=== PATIENT | male | born 1945 | race Caucasian/White ===

== ENCOUNTER 2018-02-23 20:25 | Inpatient (IN) | payer MEDICARE, OTHER ==
[~2018-02-23] VITALS: Ht 182.9 cm; Wt 89.0 kg
[2018-02-23 20:00] VITALS: BP 164/74; PULSE 70; RESP 18; TEMP 97.7; O2SAT 92
[~2018-02-23 20:25] MED LIST: ACETAMINOPHEN 325 MG TAB PO PRN; ASPI-516 CHEW; ATOR10TA15 PO; BISACODYL 10 MG SUPP RECTAL PRN; LACTULOSE SYRUP 20 GM/30 ML CUP PO PRN; MAGNESIUM HYDROXIDE SUSP 30 ML CUP PO PRN; NALOXONE HCL 0.4 MG/ML AMP IV PUSH PRN; ONDANSETRON ODT 4 MG TAB PO PRN; PROS5TAB PO; SENNOSIDES 8.6 MG TAB PO PRN; SODIUM CHLORIDE 0.9% FLUSH 10 ML FLUSH IV FLUSH PRN
[2018-02-23 21:00] VITALS: BP 164/74; PULSE 70; RESP 18; TEMP 97.7; O2SAT 92
[2018-02-23] MEDS: ATORVASTATIN 10 MG TAB PO SCH (21:30)
[2018-02-23] MEDS: MORPHINE SULFATE 4 MG/ML INJ IV PUSH PRN (21:31)
[2018-02-23] MEDS: SODIUM CHLORIDE 0.9% FLUSH 10 ML FLUSH IV FLUSH SCH (21:48)
[2018-02-23 22:18] VITALS: BP 158/67; PULSE 75; RESP 18; TEMP 98; O2SAT 95
--- NOTE | 2018-02-23 22:37 | HHI.HP ---
[facility] Frank Madden MD Admission Diagnosis Left calcaneus fracture . Diagnoses: (1) Left calcaneal fracture Chief Complaint: Left ankle pain following fall at home Travel History International Travel<30 Days: No Contact w/Intl Traveler <30 Da: No History of Present Illness Mr. Rivas is a pleasant 72-year-old male with a history of hyperlipidemia and nephrolithiasis who presented to the emergency room and [place] on 02/23/2018 complaining of left ankle pain after falling off a ladder at home. CT scan of the left foot showed complex calcaneal fracture on left: Comminuted, moderately depressed calcaneal fracture with involvement of the subtalar joints. Ankle was noted without trauma. The patient was discussed by [facility] ER provider with Dr. Ashley, on-call director of early childhood education, and he recommended transfer to the [facility] hospital and n.p.o. by mouth after midnight for surgical consultation in the morning. The patient is seen in the hospital room. He is very pleasant and polite. He reports pain level of 3 out of 10 in satisfaction with management of achy left ankle pain with IV morphine as ordered as needed. He states that he fell off a 5 foot ladder and hit his side on the doorknob as he fell but denies any pain in his back or side at this time. He reports most of the pain following a fall was located in the left ankle. He denies loss of consciousness or hitting his head. He reports being in his normal state of health prior to the fall and denies any recent chest pain, shortness of breath, syncope, fever, chills, nausea, vomiting, or diarrhea. Review of Systems Except as stated in HPI: all other systems reviewed are Neg Past Family Social History Past Medical History Hyperlipidemia Nephrolithiasis Colon polyps - hyperplastic polyp on biopsy . Past Surgical History Nephrolithotomy 15 years ago Colonoscopy with snare polypectomy x 2 . Reported Medications Reported Meds & Active Scripts Active Reported Aspirin 81 Mg Chew 81 Mg CHEW DAILY Atorvastatin (Atorvastatin Calcium) 10 Mg Tab 10 Mg PO HS Proscar (Finasteride) 5 Mg Tab 5 Mg PO DAILY Do not crush. Allergies: Coded Allergies: No Known Allergies (Unverified , 02/23/18) Family History Father with bladder cancer Mother with metastatic breast cancer to brain Brother with lung cancer and severe COPD . Social History Tobacco: Smoked for 20 years, 1 pack per day, quit in 1997 Alcohol: Occasional social alcohol use Illicit Drugs: Denies . Physical Exam Vital Signs Vital Signs Date Time Temp Pulse Resp B/P (MAP) Pulse Ox O2 Delivery O2 Flow Rate FiO2 02/23/18 22:21 Room Air 02/23/18 21:47 16 Physical Exam CONSTITUTIONAL: This is a well-nourished, well-developed, very pleasant elderly male patient, in no apparent distress. INTEGUMENTARY: No rashes, ecchymoses or lesions. Cool and dry. He has a left posterior shoulder lipoma noted on examination. HEAD: Atraumatic. Normocephalic. EYES: No scleral icterus. No injection or drainage. ENT: Nose without bleeding, purulent drainage. NECK: Trachea midline. No JVD. CARDIOVASCULAR: Regular rate and rhythm without murmurs, gallops, or rubs. RESPIRATORY: Clear to auscultation. Breath sounds equal bilaterally. No wheezes , rales, or rhonchi. GASTROINTESTINAL: Abdomen soft, non-tender, nondistended. No guarding. MUSCULOSKELETAL: Extremities without clubbing, cyanosis. Left heel and ankle splint noted - Patient has intact sensation, capillary refill is less than 3 seconds, and he is able to wiggle his left toes. NEUROLOGICAL: Awake and alert. Motor and sensory grossly within normal limits. Normal speech. . Laboratory Laboratory Tests Test 02/23/18 18:45 White Blood Count 14.2 TH/MM3 Red Blood Count 5.38 MIL/MM3 Hemoglobin 16.6 GM/DL Hematocrit 49.6 % Mean Corpuscular Volume 92.2 FL Mean Corpuscular Hemoglobin 30.9 PG Mean Corpuscular Hemoglobin Concent 33.5 % Red Cell Distribution Width 12.9 % Platelet Count 268 TH/MM3 Mean Platelet Volume 9.2 FL Immature Granulocyte % (Auto) 0.4 % Neutrophils (%) (Auto) 79.3 % Lymphocytes (%) (Auto) 13.4 % Monocytes (%) (Auto) 5.8 % Eosinophils (%) (Auto) 0.4 % Basophils (%) (Auto) 0.7 % Immature Granulocyte # (Auto) 0.1 TH/MM3 Neutrophils # (Auto) 11.3 TH/MM3 Lymphocytes # (Auto) 1.9 TH/MM3 Monocytes # (Auto) 0.8 TH/MM3 Eosinophils # (Auto) 0.1 TH/MM3 Basophils # (Auto) 0.1 TH/MM3 CBC Comment DIFF FINAL Differential Comment Prothrombin Time 9.8 SEC Prothromb Time International Ratio 0.9 RATIO Activated Partial Thromboplast Time 23.4 SEC Blood Urea Nitrogen 18 MG/DL Creatinine 1.00 MG/DL Random Glucose 101 MG/DL Total Protein 7.5 GM/DL Albumin 3.9 GM/DL Calcium Level 9.0 MG/DL Alkaline Phosphatase 111 U/L Aspartate Amino Transf (AST/SGOT) 20 U/L Alanine Aminotransferase (ALT/SGPT) 26 U/L Total Bilirubin 0.3 MG/DL Sodium Level 142 MEQ/L Potassium Level 4.8 MEQ/L Chloride Level 109 MEQ/L Carbon Dioxide Level 26.0 MEQ/L Anion Gap 7 MEQ/L Estimat Glomerular Filtration Rate 74 ML/MIN . Imaging Last Impressions Lower Extremity CT 02/23/18 0000 Signed Impressions: Service Date/Time: Friday, February 23, 2018 18:48 - CONCLUSION: Complex calcaneal fracture Blake Hernandez MD Foot X-Ray 02/23/18 0000 Signed Impressions: Service Date/Time: Friday, February 23, 2018 17:27 - CONCLUSION: Severely comminuted calcaneal fracture. 3-D CT scan of the foot is suggested Darrell Sullivan MD FACR Ankle X-Ray 02/23/18 0000 Signed Impressions: Service Date/Time: Friday, February 23, 2018 17:27 - CONCLUSION: Calcaneal fracture as above. CT scan with 3-D reconstruction may be helpful. Darrell Sullivan MD FACR . Caprini VTE Risk Assessment Caprini VTE Risk Assessment: Mod/High Risk (score >= 2) Caprini Risk Assessment Model Point Value = 1 Point Value = 2 Point Value = 3 Point Value = 5 Age 41-60 Minor surgery BMI > 25 kg/m2 Swollen legs Varicose veins or History of unexplained or recurrent spontaneous Oral contraceptives or hormone replacement Sepsis (< 1 month) Serious lung disease, including pneumonia (< 1 month) Abnormal pulmonary function Acute myocardial infarction Congestive heart failure (< 1 month) History of inflammatory bowel disease Medical patient at bed rest Age 61-74 Arthroscopic surgery Major open surgery (> 45 min) Laparoscopic surgery (> 45 min) Malignancy Confined to bed (> 72 hours) Immobilizing plaster cast Central venous access Age >= 75 History of VTE Family history of VTE Factor V Leiden Prothrombin [id number] Lupus anticoagulant Anticardiolipin antibodies Elevated serum homocysteine Heparin-induced thrombocytopenia Other congenital or acquired thrombophilia Stroke (< 1 month) Elective arthroplasty Hip, pelvis, or leg fracture Acute spinal cord injury (< 1 month) Prophylaxis Regimen Total Risk Factor Score Risk Level Prophylaxis Regimen 0-1 Low Early ambulation 2 Moderate Order ONE of the following: *Sequential Compression Device (SCD) *Heparin 5000 units SQ BID 3-4 Higher Order ONE of the following medications: *Heparin 5000 units SQ TID *Enoxaparin/Lovenox 40 mg SQ daily (WT < 150 kg, CrCl > 30 mL/min) *Enoxaparin/Lovenox 30 mg SQ daily (WT < 150 kg, CrCl > 10-29 mL/min) *Enoxaparin/Lovenox 30 mg SQ BID (WT < 150 kg, CrCl > 30 mL/min) AND/OR *Sequential Compression Device (SCD) 5 or more Highest Order ONE of the following medications: *Heparin 5000 units SQ TID (Preferred with Epidurals) *Enoxaparin/Lovenox 40 mg SQ daily (WT < 150 kg, CrCl > 30 mL/min) *Enoxaparin/Lovenox 30 mg SQ daily (WT < 150 kg, CrCl > 10-29 mL/min) *Enoxaparin/Lovenox 30 mg SQ BID (WT < 150 kg, CrCl > 30 mL/min) AND *Sequential Compression Device (SCD) Assessment and Plan Problem List: (1) Left calcaneal fracture ICD Code: S92.002A - Unspecified fracture of left calcaneus, initial encounter for closed fracture Assessment and Plan Mr. Rivas is a pleasant 72-year-old male with a history of hyperlipidemia and nephrolithiasis who presented to the emergency room and [facility] on 02/23/2018 complaining of left ankle pain after falling off a ladder at home. CT scan of the left foot showed complex calcaneal fracture on left: Comminuted, moderately depressed calcaneal fracture with involvement of the subtalar joints. Ankle was noted without trauma. The patient was discussed by [facility] ER provider with Dr. Ashley, on-call director of early childhood education, and he recommended transfer to the main hospital and n.p.o. by mouth after midnight for surgical consultation in the morning. Left calcaneal complex fracture - CT scan of the left foot showed complex calcaneal fracture on left: Comminuted , moderately depressed calcaneal fracture with involvement of the subtalar joints. - Morphine 2 mg IV q3h PRN pain > 4 - NPO after midnight - Podiatry consulted - appreciate assistance - EKG with nonspecific ST-T wave abnormalities, moderate intraventricular conduction delay - patient asymptomatic but with some risk factors for ACS - will need outpatient follow up Hyperlipidemia - continue home statin or equivalent BPH - continue home finasteride DVT prophylaxis - SCD/BERNARDINO to nonoperative leg . Discussed Condition With Patient, RN, and Dr. Hunter . Physician Certification 2 Midnight Certification Type: Admission for Inpatient Services Order for Inpatient Services The services are ordered in accordance with Medicare regulations or non- Medicare payer requirements, as applicable. In the case of services not specified as inpatient-only, they are appropriately provided as inpatient services in accordance with the 2-midnight benchmark. Estimated LOS (days): 3 days is the estimated time the patient will need to remain in the hospital, assuming treatment plan goals are met and no additional complications. Post-Hospital Plan: Not yet determined Sammi Toledo February 23, 2018 22:37
[2018-02-24 00:58] VITALS: BP 164/74; PULSE 70; RESP 18; TEMP 97.7; O2SAT 92
[2018-02-24] MEDS: MORPHINE SULFATE 4 MG/ML INJ IV PUSH PRN ×2 (02:36→10:44)
[2018-02-24 03:55] VITALS: BP 161/79; PULSE 85; RESP 18; TEMP 98; O2SAT 93
[2018-02-24] MEDS ORDERED: SODIUM CHLORID 0.9% 500 ML IV PRN (05:15)
[2018-02-24] MEDS ORDERED: POVIDONE IODINE 5% (ANTISEPSIS KIT) 4 APPLICATIONS EACH NARE PRN (05:15)
[2018-02-24] MEDS ORDERED: CHLORHEXIDINE GLUCONATE 2 % 1 PACK (2 CLOTHS) TOPICAL PRN (05:15)
[2018-02-24] MEDS ORDERED: LACTATED RINGER'S 1000 ML IV PRN (05:15)
[2018-02-24 05:54] LABS: AUTOMATED NEUTROPHIL # 9.4 TH/MM3 (1.8-7.7); BASOPHIL # 0.1 TH/MM3 (0-0.2); BASOPHIL % 0.7 % (0.0-2.0); EOSINOPHIL # 0.1 TH/MM3 (0-0.4); EOSINOPHIL % 1.1 % (0.0-4.0); HEMATOCRIT 46.2 % (39.0-51.0); HEMOGLOBIN 15.5 GM/DL (13.0-17.0); LYMPH % 15.7 % (9.0-44.0); MEAN CELL VOLUME 92.7 FL (80.0-100.0); MEAN CORPUSCULAR HEMOGLOBIN 31.1 PG (27.0-34.0); MEAN CORPUSCULAR HGB CONC 33.5 % (32.0-36.0); MONO % 7.9 % (0.0-8.0); NEUT % 74.6 % (16.0-70.0); PLATELET COUNT 238 TH/MM3 (150-450); RED BLOOD COUNT 4.98 MIL/MM3 (4.50-5.90); RED CELL DISTRIBUTION WIDTH 13.3 % (11.6-17.2); WHITE BLOOD COUNT 12.6 TH/MM3 (4.0-11.0)
[2018-02-24 06:29] LABS: BICARBONATE 24.9 MEQ/L (21.0-32.0); CALCIUM 8.3 MG/DL (8.5-10.1); CREATININE 0.95 MG/DL (0.60-1.30)
[2018-02-24 08:00] VITALS: BP 160/86; PULSE 77; RESP 17; TEMP 98.2; O2SAT 98
--- NOTE | 2018-02-24 08:17 | MB ---
cc: Godwin AshleyM DATE: 02/24/2018 REASON FOR CONSULTATION: Left calcaneal fracture. HISTORY OF PRESENT ILLNESS: This is a pleasant 72-year-old male who was at home, fell approximately 5 feet from an elevated surface of the ladder. The patient presented took the [place] ER. There was noted to be an intra-articular joint depressed subtalar joint calcaneal fracture. CT also confirmed. The patient was then transferred to [facility] for surgical intervention. Currently I am seeing the bedside. The patient correlates the story. He is having mild ankle pain as well. No other injuries noted. PAST MEDICAL HISTORY: Positive for hyperlipidemia, nephrolithiasis, surgery 15 years ago, colon polyps, hyperplastic polyp on biopsy. PAST SURGICAL HISTORY: Fifteen years ago, nephrolithotomy, colonoscopy with polypectomy x 2. REPORTED OUTPATIENT MEDICATIONS: 1. Aspirin. 2. Atorvastatin. 3. Proscar. 5. Uloric for gout. ALLERGIES: NO KNOWN DRUG ALLERGIES. FAMILY HISTORY: Father positive for bladder cancer. Mother positive for metastatic breast cancer to the brain. Brother with lung cancer and severe COPD. SOCIAL HISTORY: Smoked 20 years about a pack a day, quit in 1997. Alcohol, occasional. No illicit drugs. INPATIENT MEDICATIONS: He is receiving as needed pain medication. PHYSICAL EXAMINATION: VITAL SIGNS: Temperature is 98.0, pulse rate is 85, respiratory rate is 18, blood pressure 161/79. He is sating 93% on room air. GENERAL: This is 89 kilogram male seen at bedside exhibiting nonlabored respirations. He is verbal and appropriate. He is able to move the upper and lower extremities. The left lower extremity is immobilized within a splint. Upon relieving the splint, there is noted to be bruising, edema, and ecchymosis with a very early medial fracture blister at the level of the tarsal tunnel. There are no open lesions. No laceration. There is limited range of motion of the subtalar joint with pain. There is good range of motion of the digits. There are no signs of plantar foot compartment syndrome; however, there is obvious swelling. Achilles appears to be intact. It is hard to assess the peroneal tendons. Anterior tibialis appears to be intact. It is hard to assess the posterior tibial tendon. Calf is nontender and nondistended. There is mild pain upon palpating the distal fibula. Left ankle x-rays intact, talar dome. No gapping of the medial clear space or the lateral clear space. No signs of syndesmosis widening. No signs of distal tibia, medial malleolus or lateral ankle fracture. There is obvious joint depression, comminuted intraarticular fracture of the calcaneus. CT shows joint depression involving mainly the posterior facet greater than 3 mm displacement. LABORATORY FINDINGS: White blood cells 12.6, hemoglobin and hematocrit 15 and 46, platelet count is 238. Chem-7: Sodium 141, potassium 3.9, chloride 107, CO2 24.9, BUN 18, creatinine 0.95, random glucose is 104. EKG: Sinus rhythm, borderline right axis deviation with moderate intraventricular conduction delay, nonspecific ST and T-wave abnormality. ASSESSMENT: Left intra-articular displaced calcaneal fracture, closed. PLAN: The plan is for operative intervention, a combination of external fixation with internal fixation will take place later on today. The patient was educated on risks and benefits of surgery including, but not limited to wound healing complications, delayed bone healing, possible infection, possible need for revisional surgery, removal of hardware at a later date. No guarantees were given or implied regarding the outcome. The patient understood. The patient is n.p.o. The patient is to be managed by the medical team. I will see the patient later on for surgical intervention. Godwin Ashley DPM DBM/DL , 07:38 AM , 08:16 AM
[2018-02-24] MEDS: FINASTERIDE 5 MG TAB PO SCH (09:00)
--- NOTE | 2018-02-24 09:31 | EKG ---
Date Performed: 02/23/2018 Time Performed: 22:43:04 PTAGE: 72 years EKG: Sinus rhythm BORDERLINE RIGHT AXIS DEVIATION MODERATE INTRAVENTRICULAR CONDUCTION DELAY NONSPECIFIC ST & T-WAVE A BNORMALITY BORDERLINE ECG NO PREVIOUS TRACING DOCTOR: Doreen Carter Interpretating Date/Time 02/24/2018 09:30:42
--- NOTE | 2018-02-24 10:16 | HHI.PR ---
Subjective Remarks Patient laying in bed, states pain is controlled. Surgery scheduled for 3pm per podiatry. Ice machine to left foot. No chest pain. Objective Vitals Vital Signs Date Time Temp Pulse Resp B/P (MAP) Pulse Ox O2 Delivery O2 Flow Rate FiO2 02/24/18 08:00 98.2 77 17 160/86 (110) 98 02/24/18 03:55 98.0 85 18 161/79 (106) 93 02/24/18 02:41 17 02/24/18 00:58 97.7 70 18 164/74 (104) 92 02/23/18 22:21 Room Air 02/23/18 22:18 98.0 75 18 158/67 (97) 95 02/23/18 20:00 97.7 70 18 164/74 (104) 92 I/O 02/23/18 02/23/18 02/23/18 02/24/18 02/24/18 02/24/18 07:00 15:00 23:00 07:00 15:00 23:00 Intake Total 360 ml Output Total 400 ml Balance -400 ml 360 ml Intake Oral 360 ml Output Urine Total 400 ml # Voids 2 # Bowel Movements 0 Result Diagram: 02/24/18 0430 02/24/18 0430 Objective Remarks SKIN: Warm and dry. Ice to left foot NECK: Trachea midline. No JVD. CARDIOVASCULAR: Regular rate and rhythm. RESPIRATORY: No accessory muscle use. Clear to auscultation. Breath sounds equal bilaterally. GASTROINTESTINAL: Abdomen soft, non-tender, nondistended. Hepatic and splenic margins not palpable. MUSCULOSKELETAL: Left foot mild swelling and tenderness. NEUROLOGICAL: Awake and alert. No obvious cranial nerve deficits. Normal speech. PSYCHIATRIC: Appropriate mood and affect; insight and judgment normal. A/P Problem List: (1) Left calcaneal fracture ICD Code: S92.002A - Unspecified fracture of left calcaneus, initial encounter for closed fracture Status: Acute Assessment and Plan Mr. Rivas is a pleasant 72-year-old male with a history of hyperlipidemia and nephrolithiasis who presented to the emergency room and [place] on 02/23/2018 complaining of left ankle pain after falling off a ladder at home. Left calcaneal complex fracture CT scan of the left foot showed complex calcaneal fracture on left: Comminuted, moderately depressed calcaneal fracture with involvement of the subtalar joints. - Cont Morphine 2 mg IV q3h PRN pain > 4 - NPO - Podiatry following surgery planned for 3pm - EKG with nonspecific ST-T wave abnormalities, moderate intraventricular conduction delay - patient asymptomatic but with some risk factors for ACS - will need outpatient follow up Hyperlipidemia - continue home statin or equivalent BPH - continue home finasteride DVT prophylaxis - SCD/BERNARDINO to nonoperative leg . Problem Qualifiers (1) Left calcaneal fracture: Adali Butler February 24, 2018 10:16
[2018-02-24] MEDS: SODIUM CHLORIDE 0.9% FLUSH 10 ML FLUSH IV FLUSH SCH ×2 (10:46→20:50)
[2018-02-24 12:00] VITALS: BP 148/82; PULSE 81; RESP 17; TEMP 98.3; O2SAT 94
[2018-02-24] MEDS ORDERED: LABETALOL HCL 100 MG/20 ML VIAL IV ONE (12:00)
[2018-02-24] MEDS ORDERED: ceFAZolin INJ 1,000 MG VIAL IV ONE ×2 (12:00→16:38)
[2018-02-24] MEDS ORDERED: ePHEDrine/NS 25 MG/5 ML SYRINGE IV ONE (12:00)
[2018-02-24] MEDS ORDERED: PHENYLEPH/NS 1000 MCG/10 ML SYR IV ONE (12:00)
[2018-02-24] MEDS ORDERED: DEXAMETHASONE SOD PHOS 4 MG/ML VIAL IV ONE (12:00)
[2018-02-24] MEDS ORDERED: ONDANSETRON HCL 4 MG/2 ML VIAL IV ONE (12:00)
[2018-02-24] MEDS ORDERED: LIDOCAINE HCL 1% PF 5 ML SYRINGE OTHER ONE (12:00)
[2018-02-24] MEDS ORDERED: PROPOFOL 200 MG/20 ML AMP IV ONE (12:00)
[2018-02-24] MEDS ORDERED: BUPIVACAINE HCL PF 0.25% 30 ML VIAL ONE (14:50)
[2018-02-24] MEDS ORDERED: GENTAMICIN SULFATE 80 MG/2 ML VIAL ONE (14:50)
--- NOTE | 2018-02-24 18:21 | EKG ---
Date Performed: 02/24/2018 Time Performed: 02:29:44 PTAGE: 72 years EKG: Sinus rhythm Leftward axis IV conduction defect Inferior infarct - age undetermined Abnormal ECG PREVIOUS TRACING : 02/23/2018 22.43 Since the previous tracing, no significant change noted DOCTOR: Doreen Carter Interpretating Date/Time 02/24/2018 18:19:59
--- NOTE | 2018-02-24 18:55 | HHI.PR ---
Immediate Post Op Note Procedure Date: February 24, 2018 Pre Op Diagnosis: (1) Left calcaneal fracture Post Op Diagnosis: same Surgeon: Godwin Plascencia Brass Bobbin Winder(s): Robert Hendrickson Procedure: ORIF L calc Findings: See op dictation Complications: none Specimen(s) removed: none Estimated blood loss: less 30mL Anesthesia: General, Local Drains: None Tourniquet time (min at mmHg) 130mmhg left ankle Patient to: Other Patient Condition: Fair Implant/Devices: SEE IMPLANT LOG (if applicable) Date/Time of Procedure: SEE SURGICAL CARE RECORD Godwin PlascenciaM February 24, 2018 18:55
[2018-02-24] MEDS ORDERED: BISACODYL 10 MG SUPP RECTAL PRN (19:15)
[2018-02-24] MEDS ORDERED: MAGNESIUM HYDROXIDE SUSP 30 ML CUP PO PRN (19:15)
[2018-02-24] MEDS ORDERED: Post-op Orders (for Pharmacy) XX ONE (19:15)
[2018-02-24] MEDS ORDERED: SENNOSIDES 8.6 MG TAB PO PRN (19:15)
[2018-02-24] MEDS ORDERED: HYDROmorphone HCL PF 0.5 MG/0.5 ML SYRINGE IV PRN (20:00)
[2018-02-24] MEDS ORDERED: DO NOT ADM ANY ANTICOAGULANT DRUGS PRN (20:00)
[2018-02-24 20:03] VITALS: BP 145/77; PULSE 86; RESP 18; TEMP 98.1; O2SAT 93
[2018-02-24] MEDS: ATORVASTATIN 10 MG TAB PO SCH (20:50)
[2018-02-24] MEDS: DOCUSATE SODIUM 50 MG/SENNA 8.6 MG TAB PO SCH (20:50)
--- NOTE | 2018-02-24 22:32 | RADRPT ---
EXAM DATE/TIME: 02/24/2018 17:04 [facility] COMPARISON: No previous studies available for comparison. INDICATIONS : ORIF of the left heel. MEDICAL HISTORY : None. SURGICAL HISTORY : None. ENCOUNTER: Subsequent ACUITY: 2 days PAIN SCORE: Non-responsive. LOCATION: Left heel FINDINGS: 2 projection examination of the left heel reveals plate and multiple screw fixation of a complex calc aneal fracture with satisfactory reduction of fragments. Hardware appears intact. CONCLUSION: Satisfactory operative appearance Blake Hernandez MD on February 24, 2018 at 22:29 Board Certified Radiologist. This report was verified electronically.
[2018-02-24 23:13] VITALS: BP 129/62; PULSE 75; RESP 18; TEMP 98.2; O2SAT 94
[2018-02-25 02:59] VITALS: BP 122/66; PULSE 90; RESP 18; TEMP 97.9; O2SAT 93
[2018-02-25] MEDS: ENOXAPARIN SODIUM 30 MG/0.3 ML SYRINGE SQ SCH ×2 (04:20→16:41)
--- NOTE | 2018-02-25 06:52 | PD.POD ---
Subjective Pain score: 2 Remarks Doing well, if pain remains well controlled ready to go home. Past Med/Surg/Social History Social History Smoking Status: Never Smoker Objective Vital Signs Vital Signs Date Time Temp Pulse Resp B/P (MAP) Pulse Ox O2 Delivery O2 Flow Rate FiO2 02/25/18 02:59 97.9 90 18 122/66 (84) 93 02/24/18 23:13 98.2 75 18 129/62 (84) 94 02/24/18 21:43 Nasal Cannula 3.00 02/24/18 20:03 98.1 86 18 145/77 (99) 93 02/24/18 19:55 71 16 139/72 (94) 96 Nasal Cannula 4 02/24/18 19:45 71 16 147/74 (98) 94 Nasal Cannula 4 02/24/18 19:30 71 16 135/61 (85) 94 Nasal Cannula 4 02/24/18 19:15 70 16 131/63 (85) 95 Nasal Cannula 4 02/24/18 19:00 82 16 130/59 (82) 95 Nasal Cannula 4 02/24/18 18:47 98.7 73 16 129/60 (83) 94 Simple Mask 8 02/24/18 12:00 98.3 81 17 148/82 (104) 94 02/24/18 08:00 98.2 77 17 160/86 (110) 98 Coded Allergies: No Known Allergies (Unverified , 02/23/18) Medications and IVs Administered Medications Medications (Trade) Dose Ordered Sig/Christopher Route PRN Reason Start Time Stop Time Status Last Admin Dose Admin Sodium Chloride (NS Flush) 2 ml BID IV FLUSH 02/23/18 21:00 02/24/18 20:50 Atorvastatin Calcium (Lipitor) 10 mg HS PO 02/23/18 21:00 02/24/18 20:50 Lactated Ringer's 1,000 ml @ 30 mls/hr Q24H PRN IV SEE LABEL COMMENTS 02/24/18 05:15 02/27/18 05:14 02/24/18 15:15 Cefazolin Sodium 1000 mg/Sodium Chloride 100 ml @ 200 mls/hr Q6H IV 02/24/18 22:00 02/25/18 10:29 02/25/18 04:20 Enoxaparin Sodium (Lovenox Inj) 30 mg Q12H SQ 02/25/18 05:00 02/25/18 04:20 Senna/Docusate Sodium (Dolores-Colace) 1 tab BID PO 02/24/18 21:00 02/24/18 20:50 Physical Exam Nutritional status: normal Orientation: alert and oriented x3 Respiratory effort: FINDINGS: normal Details Left LE: Post Splint intact, good ROM of digits, good CFT to digits. Assessment & Plan A/P SP Left calc ORIF. Doing well, pain appears to be well controlled. Bandage to be changed in 5-7 days. If PT tolerated ok to DC home. Recommend, Lovenox for 3 weeks. Will call back and speak to nurse later today for possible DC home in afternoon Godwin Ashley DPM February 25, 2018 06:52
[2018-02-25 08:00] VITALS: BP 138/70; PULSE 73; RESP 17; TEMP 98.2; O2SAT 94
[2018-02-25 08:00] LABS: AUTOMATED NEUTROPHIL # 11.5 TH/MM3 (1.8-7.7); BASOPHIL % 0.2 % (0.0-2.0); HEMATOCRIT 44.1 % (39.0-51.0); HEMOGLOBIN 14.7 GM/DL (13.0-17.0); LYMPH % 11.2 % (9.0-44.0); LYMPHOCYTE # 1.6 TH/MM3 (1.0-4.8); MEAN CELL VOLUME 91.9 FL (80.0-100.0); MEAN CORPUSCULAR HEMOGLOBIN 30.7 PG (27.0-34.0); MEAN CORPUSCULAR HGB CONC 33.4 % (32.0-36.0); MEAN PLATELET VOLUME 7.8 FL (7.0-11.0); MONO % 7.2 % (0.0-8.0); NEUT % 81.4 % (16.0-70.0); PLATELET COUNT 252 TH/MM3 (150-450); RED CELL DISTRIBUTION WIDTH 13.6 % (11.6-17.2); WHITE BLOOD COUNT 14.1 TH/MM3 (4.0-11.0)
[2018-02-25] MEDS: DOCUSATE SODIUM 50 MG/SENNA 8.6 MG TAB PO SCH (08:14)
[2018-02-25] MEDS ORDERED: oxyCODONE/ACETAMINOPHEN 5 MG/325 MG TAB PO PRN (08:15)
[2018-02-25] MEDS: SODIUM CHLORIDE 0.9% FLUSH 10 ML FLUSH IV FLUSH SCH (08:15)
[2018-02-25 08:22] LABS: BICARBONATE 24.9 MEQ/L (21.0-32.0); CALCIUM 8.6 MG/DL (8.5-10.1); CREATININE 0.9 MG/DL (0.60-1.30)
[2018-02-25] MEDS: FINASTERIDE 5 MG TAB PO SCH (09:00)
[2018-02-25 09:15] VITALS: RESP 18
[2018-02-25] MEDS: oxyCODONE/ACETAMINOPHEN 5 MG/325 MG TAB PO PRN ×2 (12:12→16:40)
--- NOTE | 2018-02-25 14:09 | HHI.PR ---
Subjective Remarks Mr. Rivas is a pleasant 72-year-old male with a history of hyperlipidemia and nephrolithiasis who presented to the emergency room and [place] on 02/23/2018 complaining of left ankle pain after falling off a ladder at home. CT scan of the left foot showed complex calcaneal fracture on left: Comminuted, moderately depressed calcaneal fracture with involvement of the subtalar joints. Ankle was noted without trauma. The patient was discussed by [place] ER provider with Dr. Plascencia, on-call chicken and fish cleaner, and he recommended transfer to the [facility] and n.p.o. by mouth after midnight for surgical consultation in the morning. The patient is seen in the hospital room. He is very pleasant and polite. He reports pain level of 3 out of 10 in satisfaction with management of achy left ankle pain with IV morphine as ordered as needed. He states that he fell off a 5 foot ladder and hit his side on the doorknob as he fell but denies any pain in his back or side at this time. He reports most of the pain following a fall was located in the left ankle. He denies loss of consciousness or hitting his head. He reports being in his normal state of health prior to the fall and denies any recent chest pain, shortness of breath, syncope, fever, chills, nausea, vomiting, or diarrhea. 5-15 Patient laying in bed, states pain is controlled. Surgery scheduled for 3pm per podiatry. Ice machine to left foot. No chest pain. 5-16 CLEARED FOR DISCHARGE FROM [facility] TO HOME TODAY DW RN AND PT AND CM Objective Vitals Vital Signs Date Time Temp Pulse Resp B/P (MAP) Pulse Ox O2 Delivery O2 Flow Rate FiO2 02/25/18 09:15 18 02/25/18 08:20 94 Room Air 02/25/18 08:00 98.2 73 17 138/70 (92) 94 02/25/18 02:59 97.9 90 18 122/66 (84) 93 02/24/18 23:13 98.2 75 18 129/62 (84) 94 02/24/18 21:43 Nasal Cannula 3.00 02/24/18 20:03 98.1 86 18 145/77 (99) 93 02/24/18 19:55 71 16 139/72 (94) 96 Nasal Cannula 4 02/24/18 19:45 71 16 147/74 (98) 94 Nasal Cannula 4 02/24/18 19:30 71 16 135/61 (85) 94 Nasal Cannula 4 02/24/18 19:15 70 16 131/63 (85) 95 Nasal Cannula 4 02/24/18 19:00 82 16 130/59 (82) 95 Nasal Cannula 4 02/24/18 18:47 98.7 73 16 129/60 (83) 94 Simple Mask 8 I/O 02/24/18 02/24/18 02/24/18 02/25/18 02/25/18 02/25/18 06:59 14:59 22:59 06:59 14:59 22:59 Intake Total 360 ml 1800 ml 580 ml 100 ml Output Total 600 ml 250 ml 1250 ml Balance 360 ml -600 ml 1550 ml -670 ml 100 ml Intake Oral 360 ml 0 ml 480 ml IV Total 1800 ml 100 ml 100 ml Output Urine Total 600 ml 200 ml 1250 ml Estimated Blood Loss 50 ml # Voids 2 3 # Bowel Movements 0 0 Result Diagram: 02/25/18 0707 02/25/18 0707 Other Results Current Medications Sodium Chloride (NS Flush) 2 ml UNSCH PRN IV FLUSH FLUSH AFTER USING IV ACCESS ; Start 02/23/18 at 20:00 Sodium Chloride (NS Flush) 2 ml BID IV FLUSH Last administered on 02/25/18at 08: 15; Start 02/23/18 at 21:00 Acetaminophen (Tylenol) 650 mg Q4H PRN PO TEMP > 100.4; Start 02/23/18 at 20:00 Ondansetron HCl (Zofran Odt) 4 mg Q6H PRN PO NAUSEA OR VOMITING; Start at 20:15 Naloxone HCl (Narcan Inj) 0.4 mg UNSCH PRN IV PUSH SEE LABEL COMMENTS; Start at 20:00 Magnesium Hydroxide (Milk Of Magnesia Liq) 30 ml Q12H PRN PO Mild constipation ; Start 02/23/18 at 20:00; Stop 02/24/18 at 19:55; Status DC Sennosides (Senokot) 17.2 mg Q12H PRN PO Moderate constipation; Start 02/23/18 at 20:00; Stop 02/24/18 at 19:56; Status DC Bisacodyl (Dulcolax Supp) 10 mg DAILY PRN RECTAL SEVERE CONSITIPATION; Start at 20:00; Stop 02/24/18 at 19:56; Status DC Lactulose (Lactulose Liq) 30 ml DAILY PRN PO SEVERE CONSITIPATION; Start at 20:00 Morphine Sulfate (Morphine Inj) 2 mg Q3H PRN IV PUSH Pain > 4 Last administered on 02/24/18at 10:44; Start 02/23/18 at 20:30; Stop 02/24/18 at 19:56 ; Status DC Atorvastatin Calcium (Lipitor) 10 mg HS PO Last administered on 02/24/18at 20:50 ; Start 02/23/18 at 21:00 Finasteride (Proscar) 5 mg DAILY PO ; Start 02/24/18 at 09:00 Lactated Ringer's 1,000 ml @ 30 mls/hr Q24H PRN IV SEE LABEL COMMENTS Last administered on 02/24/18at 15:15; Start 02/24/18 at 05:15; Stop 02/27/18 at 05:14 Sodium Chloride 500 ml @ 30 mls/hr [id number] PRN IV SEE LABEL COMMENTS; Start at 05:15; Stop 02/27/18 at 05:14 Povidone Iodine (Betadine 5% Antisepsis Kit) 1 applic INSTRUMENTAL MUSICIAN PRN EACH NARE SEE LABEL COMMENTS; Start 02/24/18 at 05:15; Stop 02/27/18 at 05:14 Chlorhexidine Gluconate (Chlorhexidine 2% Cloth) 3 pack INSTRUMENTAL MUSICIAN PRN TOPICAL SEE LABEL COMMENTS; Start 02/24/18 at 05:15; Stop 02/27/18 at 05:14 Bupivacaine HCl (Marcaine Pf 0.25% Inj) 30 ml STK-MED ONCE .ROUTE Last administered on 02/24/18at 16:24; Start 02/24/18 at 14:50; Stop 02/24/18 at 14:51 ; Status DC Gentamicin Sulfate (Gentamicin Inj) 240 mg STK-MED ONCE .ROUTE Last administered on 02/24/18at 16:24; Start 02/24/18 at 14:50; Stop 02/24/18 at 14:51 ; Status DC Cefazolin Sodium (Ancef Inj) 2,000 mg ONCE ONCE IV Last administered on at 16:02; Start 02/24/18 at 16:38; Stop 02/24/18 at 16:39; Status DC Fentanyl Citrate (fentaNYL INJ) 400 mcg STK-MED ONCE .ROUTE ; Start 02/24/18 at 18:56; Stop 02/24/18 at 18:57; Status DC Cefazolin Sodium 1000 mg/Sodium Chloride 100 ml @ 200 mls/hr Q6H IV Last administered on 02/25/18at 09:55; Start 02/24/18 at 22:00; Stop 02/25/18 at 10:29 ; Status DC Miscellaneous Information ([facility] (for Pharmacy)) STAT ONCE XX ; Start 02/24/18 at 19:15; Stop 02/24/18 at 19:53; Status DC Enoxaparin Sodium (Lovenox Inj) 30 mg Q12H SQ Last administered on 02/25/18at 04 :20; Start 02/25/18 at 05:00 Hydromorphone HCl (Dilaudid Pf Inj) 0.5 mg Q3H PRN IV PAIN SCALE GREATER THAN 7 ; Start 02/24/18 at 20:00 Senna/Docusate Sodium (Dolores-Colace) 1 tab BID PO Last administered on at 08:14; Start 02/24/18 at 21:00 Magnesium Hydroxide (Milk Of Magnesia Liq) 30 ml Q12H PRN PO Mild constipation ; Start 02/24/18 at 19:15 Sennosides (Senokot) 17.2 mg Q12H PRN PO Moderate constipation; Start 02/24/18 at 19:15 Bisacodyl (Dulcolax Supp) 10 mg DAILY PRN RECTAL SEVERE CONSITIPATION; Start at 19:15 Miscellaneous Information ([facility] Nursing Information) ALL NURSING DEPARTME... UNSCH PRN .XX SEE LABEL COMMENTS; Start 02/24/18 at 20:00; Stop 02/25/18 at 19: 59 Oxycodone/ Acetaminophen (Percocet 5-325 Mg) 1 tab Q4H PRN PO PAIN 1-6 Last administered on 02/25/18at 08:15; Start 02/25/18 at 08:15 Oxycodone/ Acetaminophen (Percocet 5-325 Mg) 2 tab Q4H PRN PO PAIN 7-10 Last administered on 02/25/18at 12:12; Start 02/25/18 at 08:15 Imaging Last Impressions Foot X-Ray 02/24/18 0000 Signed Impressions: Service Date/Time: Saturday, February 24, 2018 17:04 - CONCLUSION: Satisfactory operative appearance Blake Hernandez MD Objective Remarks GENERAL: Awake alert and oriented 3 talkative and cooperative SKIN: Warm and dry. Left foot is dressed HEAD: Atraumatic. Normocephalic. EYES: Pupils equal and round. No scleral icterus. No injection or drainage. Extraocular muscles intact ENT: No nasal bleeding or discharge. Mucous membranes pink and moist. Tongue is midline NECK: Trachea midline. No JVD. Supple CARDIOVASCULAR: Regular rate and rhythm. S1-S2 no S3-S4 RESPIRATORY: No accessory muscle use. Clear to auscultation. Breath sounds equal bilaterally. GASTROINTESTINAL: Abdomen soft, non-tender, nondistended. Hepatic and splenic margins not palpable. MUSCULOSKELETAL: Extremities without clubbing, cyanosis, or edema. No obvious deformities. Left foot dressed NEUROLOGICAL: Awake and alert. No obvious cranial nerve deficits. Motor grossly within normal limits. Five out of 5 muscle strength in the arms and legs. Normal speech. Left foot dressed PSYCHIATRIC: Appropriate mood and affect; insight and judgment normal. Procedures Procedure Date: February 24, 2018 Pre Op Diagnosis: (1) Left calcaneal fracture Post Op Diagnosis: same Surgeon: Godwin Plascencia Top Lift Compresser(s): Robert Hendrickson Procedure: ORIF L calc Findings: See op dictation Complications: none Specimen(s) removed: none Estimated blood loss: less 30mL Anesthesia: General, Local Drains: None Tourniquet time (min at mmHg) 130mmhg left ankle Patient to: Other Patient Condition: Fair Implant/Devices: SEE IMPLANT LOG (if applicable) Date/Time of Procedure: SEE SURGICAL CARE RECORD Medications and IVs Current Medications Sodium Chloride (NS Flush) 2 ml UNSCH PRN IV FLUSH FLUSH AFTER USING IV ACCESS ; Start 02/23/18 at 20:00 Sodium Chloride (NS Flush) 2 ml BID IV FLUSH Last administered on 02/25/18at 08: 15; Start 02/23/18 at 21:00 Acetaminophen (Tylenol) 650 mg Q4H PRN PO TEMP > 100.4; Start 02/23/18 at 20:00 Ondansetron HCl (Zofran Odt) 4 mg Q6H PRN PO NAUSEA OR VOMITING; Start at 20:15 Naloxone HCl (Narcan Inj) 0.4 mg UNSCH PRN IV PUSH SEE LABEL COMMENTS; Start at 20:00 Magnesium Hydroxide (Milk Of Magnesia Liq) 30 ml Q12H PRN PO Mild constipation ; Start 02/23/18 at 20:00; Stop 02/24/18 at 19:55; Status DC Sennosides (Senokot) 17.2 mg Q12H PRN PO Moderate constipation; Start 02/23/18 at 20:00; Stop 02/24/18 at 19:56; Status DC Bisacodyl (Dulcolax Supp) 10 mg DAILY PRN RECTAL SEVERE CONSITIPATION; Start at 20:00; Stop 02/24/18 at 19:56; Status DC Lactulose (Lactulose Liq) 30 ml DAILY PRN PO SEVERE CONSITIPATION; Start at 20:00 Morphine Sulfate (Morphine Inj) 2 mg Q3H PRN IV PUSH Pain > 4 Last administered on 02/24/18at 10:44; Start 02/23/18 at 20:30; Stop 02/24/18 at 19:56 ; Status DC Atorvastatin Calcium (Lipitor) 10 mg HS PO Last administered on 02/24/18at 20:50 ; Start 02/23/18 at 21:00 Finasteride (Proscar) 5 mg DAILY PO ; Start 02/24/18 at 09:00 Lactated Ringer's 1,000 ml @ 30 mls/hr Q24H PRN IV SEE LABEL COMMENTS Last administered on 02/24/18at 15:15; Start 02/24/18 at 05:15; Stop 02/27/18 at 05:14 Sodium Chloride 500 ml @ 30 mls/hr [id number] PRN IV SEE LABEL COMMENTS; Start at 05:15; Stop 02/27/18 at 05:14 Povidone Iodine (Betadine 5% Antisepsis Kit) 1 applic INSTRUMENTAL MUSICIAN PRN EACH NARE SEE LABEL COMMENTS; Start 02/24/18 at 05:15; Stop 02/27/18 at 05:14 Chlorhexidine Gluconate (Chlorhexidine 2% Cloth) 3 pack INSTRUMENTAL MUSICIAN PRN TOPICAL SEE LABEL COMMENTS; Start 02/24/18 at 05:15; Stop 02/27/18 at 05:14 Bupivacaine HCl (Marcaine Pf 0.25% Inj) 30 ml STK-MED ONCE .ROUTE Last administered on 02/24/18at 16:24; Start 02/24/18 at 14:50; Stop 02/24/18 at 14:51 ; Status DC Gentamicin Sulfate (Gentamicin Inj) 240 mg STK-MED ONCE .ROUTE Last administered on 02/24/18at 16:24; Start 02/24/18 at 14:50; Stop 02/24/18 at 14:51 ; Status DC Cefazolin Sodium (Ancef Inj) 2,000 mg ONCE ONCE IV Last administered on at 16:02; Start 02/24/18 at 16:38; Stop 02/24/18 at 16:39; Status DC Fentanyl Citrate (fentaNYL INJ) 400 mcg STK-MED ONCE .ROUTE ; Start 02/24/18 at 18:56; Stop 02/24/18 at 18:57; Status DC Cefazolin Sodium 1000 mg/Sodium Chloride 100 ml @ 200 mls/hr Q6H IV Last administered on 02/25/18at 09:55; Start 02/24/18 at 22:00; Stop 02/25/18 at 10:29 ; Status DC Miscellaneous Information ([facility] [place] Orders (for Pharmacy)) STAT ONCE XX ; Start 02/24/18 at 19:15; Stop 02/24/18 at 19:53; Status DC Enoxaparin Sodium (Lovenox Inj) 30 mg Q12H SQ Last administered on 02/25/18at 04 :20; Start 02/25/18 at 05:00 Hydromorphone HCl (Dilaudid Pf Inj) 0.5 mg Q3H PRN IV PAIN SCALE GREATER THAN 7 ; Start 02/24/18 at 20:00 Senna/Docusate Sodium (Dolores-Colace) 1 tab BID PO Last administered on at 08:14; Start 02/24/18 at 21:00 Magnesium Hydroxide (Milk Of Magnesia Lianabel) 30 ml Q12H PRN PO Mild constipation ; Start 02/24/18 at 19:15 Sennosides (Senokot) 17.2 mg Q12H PRN PO Moderate constipation; Start 02/24/18 at 19:15 Bisacodyl (Dulcolax Supp) 10 mg DAILY PRN RECTAL SEVERE CONSITIPATION; Start at 19:15 Miscellaneous Information ([facility] Nursing Information) ALL NURSING DEPARTME... UNSCH PRN .XX SEE LABEL COMMENTS; Start 02/24/18 at 20:00; Stop 02/25/18 at 19: 59 Oxycodone/ Acetaminophen (Percocet 5-325 Mg) 1 tab Q4H PRN PO PAIN 1-6 Last administered on 02/25/18at 08:15; Start 02/25/18 at 08:15 Oxycodone/ Acetaminophen (Percocet 5-325 Mg) 2 tab Q4H PRN PO PAIN 7-10 Last administered on 02/25/18at 12:12; Start 02/25/18 at 08:15 A/P Problem List: (1) Left calcaneal fracture ICD Code: S92.002A - Unspecified fracture of left calcaneus, initial encounter for closed fracture Status: Acute Assessment and Plan Mr. Rivas is a pleasant 72-year-old male with a history of hyperlipidemia and nephrolithiasis who presented to the emergency room and [place] on 02/23/2018 complaining of left ankle pain after falling off a ladder at home. Left calcaneal complex fracture CT scan of the left foot showed complex calcaneal fracture on left: Comminuted, moderately depressed calcaneal fracture with involvement of the subtalar joints. - Cont Morphine 2 mg IV q3h PRN pain > 4 - NPO - Podiatry following surgery --status post left foot surgery by podiatry - EKG with nonspecific ST-T wave abnormalities, moderate intraventricular conduction delay - patient asymptomatic but with some risk factors for ACS - will need outpatient follow up Hyperlipidemia - continue home statin or equivalent BPH - continue home finasteride DVT prophylaxis - SCD/BERNARDINO to nonoperative leg Has been cleared by podiatry for discharge Discharge Planning Discharge to home Problem Qualifiers (1) Left calcaneal fracture: Darrell Sarkar DO February 25, 2018 14:09
[2018-02-25] MEDS ORDERED: PERI PO (14:12)
[2018-02-25] MEDS ORDERED: ENOX30P SQ (14:12)
[2018-02-25] MEDS ORDERED: OXYC1TAB63 PO (14:12)
[2018-02-25] MEDS ORDERED: WALKER WHEELS/F1 MIS (14:14)
--- NOTE | 2018-02-25 14:16 | HHI.DS ---
Discharge Summary Admission Date February 23, 2018 at 20:35 Discharge Date: February 25, 2018 Admitting Diagnosis Left calcaneus fracture . (1) Left calcaneal fracture ICD Code: S92.002A - Unspecified fracture of left calcaneus, initial encounter for closed fracture Diagnosis: Principal Status: Acute Procedures Procedure Date: February 24, 2018 Pre Op Diagnosis: (1) Left calcaneal fracture Post Op Diagnosis: same Surgeon: Godwin Plascencia Personnel Generalist Manager(s): Robert Hendrickson Procedure: ORIF L calc Findings: See op dictation Complications: none Specimen(s) removed: none Estimated blood loss: less 30mL Anesthesia: General, Local Drains: None Tourniquet time (min at mmHg) 130mmhg left ankle Patient to: Other Patient Condition: Fair Implant/Devices: SEE IMPLANT LOG (if applicable) Date/Time of Procedure: SEE SURGICAL CARE RECORD Brief History - From Admission Mr. Rivas is a pleasant 72-year-old male with a history of hyperlipidemia and nephrolithiasis who presented to the emergency room and [place] on 02/23/2018 complaining of left ankle pain after falling off a ladder at home. CT scan of the left foot showed complex calcaneal fracture on left: Comminuted, moderately depressed calcaneal fracture with involvement of the subtalar joints. Ankle was noted without trauma. The patient was discussed by [place] ER provider with Dr. Plascencia, on-call scientific investigator, and he recommended transfer to the [facility] and n.p.o. by mouth after midnight for surgical consultation in the morning. The patient is seen in the hospital room. He is very pleasant and polite. He reports pain level of 3 out of 10 in satisfaction with management of achy left ankle pain with IV morphine as ordered as needed. He states that he fell off a 5 foot ladder and hit his side on the doorknob as he fell but denies any pain in his back or side at this time. He reports most of the pain following a fall was located in the left ankle. He denies loss of consciousness or hitting his head. He reports being in his normal state of health prior to the fall and denies any recent chest pain, shortness of breath, syncope, fever, chills, nausea, vomiting, or diarrhea. CBC/BMP: 02/25/18 0707 02/25/18 0707 Significant Findings Laboratory Tests Test 02/24/18 04:30 02/25/18 07:07 White Blood Count 12.6 TH/MM3 (4.0-11.0) 14.1 TH/MM3 (4.0-11.0) Neutrophils (%) (Auto) 74.6 % (16.0-70.0) 81.4 % (16.0-70.0) Neutrophils # (Auto) 9.4 TH/MM3 (1.8-7.7) 11.5 TH/MM3 (1.8-7.7) Monocytes # (Auto) 1.0 TH/MM3 (0-0.9) 1.0 TH/MM3 (0-0.9) Calcium Level 8.3 MG/DL (8.5-10.1) Estimat Glomerular Filtration Rate 78 ML/MIN (>89) 83 ML/MIN (>89) Random Glucose 111 MG/DL (74-106) Imaging Last Impressions Foot X-Ray 02/24/18 0000 Signed Impressions: Service Date/Time: Saturday, February 24, 2018 17:04 - CONCLUSION: Satisfactory operative appearance Blake Hernandez MD PE at Discharge GENERAL: Awake alert and oriented 3 talkative and cooperative SKIN: Warm and dry. Left foot is dressed HEAD: Atraumatic. Normocephalic. EYES: Pupils equal and round. No scleral icterus. No injection or drainage. Extraocular muscles intact ENT: No nasal bleeding or discharge. Mucous membranes pink and moist. Tongue is midline NECK: Trachea midline. No JVD. Supple CARDIOVASCULAR: Regular rate and rhythm. S1-S2 no S3-S4 RESPIRATORY: No accessory muscle use. Clear to auscultation. Breath sounds equal bilaterally. GASTROINTESTINAL: Abdomen soft, non-tender, nondistended. Hepatic and splenic margins not palpable. MUSCULOSKELETAL: Extremities without clubbing, cyanosis, or edema. No obvious deformities. Left foot dressed NEUROLOGICAL: Awake and alert. No obvious cranial nerve deficits. Motor grossly within normal limits. Five out of 5 muscle strength in the arms and legs. Normal speech. Left foot dressed PSYCHIATRIC: Appropriate mood and affect; insight and judgment normal. Hospital Course Mr. Rivas is a pleasant 72-year-old male with a history of hyperlipidemia and nephrolithiasis who presented to the emergency room and [place] on 02/23/2018 complaining of left ankle pain after falling off a ladder at home. CT scan of the left foot showed complex calcaneal fracture on left: Comminuted, moderately depressed calcaneal fracture with involvement of the subtalar joints. Ankle was noted without trauma. The patient was discussed by [place] ER provider with Dr. Plascencia, on-call scientific investigator, and he recommended transfer to the [facility] and n.p.o. by mouth after midnight for surgical consultation in the morning. The patient is seen in the hospital room. He is very pleasant and polite. He reports pain level of 3 out of 10 in satisfaction with management of achy left ankle pain with IV morphine as ordered as needed. He states that he fell off a 5 foot ladder and hit his side on the doorknob as he fell but denies any pain in his back or side at this time. He reports most of the pain following a fall was located in the left ankle. He denies loss of consciousness or hitting his head. He reports being in his normal state of health prior to the fall and denies any recent chest pain, shortness of breath, syncope, fever, chills, nausea, vomiting, or diarrhea. 5-15 Patient laying in bed, states pain is controlled. Surgery scheduled for 3pm per podiatry. Ice machine to left foot. No chest pain. 5-16 CLEARED FOR DISCHARGE FROM [facility] TO HOME TODAY JAKY RN AND PT AND CM HAD SURGERY YESTERDAY SEE REPORT Pt Condition on Discharge: Good Discharge Disposition: Discharge Home Discharge Time: > 30 minutes Discharge Instructions DIET: Follow Instructions for: Heart Healthy Diet Speech Therapy-Diet Recommends: Regular Activities you can perform: See Additionl Instruction Other Activity Instructions: Weightbearing per podiatry restrictionS Follow up Referrals: PCP Follow-up - 1 Week with Frank Madden MD Podiatry - 3-5 Days with Godwin Plascencia DPM New Medications: Walker with Front Wheels (Walker with Front Wheels) 1 Mis Mis EA .XX DIRECTED for GAIT INSTABILITY, #1 0 Refills Enoxaparin Inj (Lovenox Inj) 30 Mg/0.3 Ml Syr 30 MG SQ Q12H for Blood Clot Prevention, #42 INJECTION Oxycodone HCl/Acetaminophen (Oxycodone-Acetaminophen 5-325) 5 Mg-325 Mg Tablet 2 TAB PO Q4H PRN for PAIN 1 TO 10, #60 TAB Sennosides-Docusate Sodium (Gnp Senna Plus 8.6-50 mg) 8.6 Mg-50 Mg Tab 2 TAB PO BID for Constipation, #120 TAB Continued Medications: Aspirin (Aspirin) 81 Mg Chew 81 MG CHEW DAILY, TAB 0 Refills Atorvastatin (Atorvastatin) 10 Mg Tab 10 MG PO HS for Cholesterol Management, #30 TAB 0 Refills Finasteride (Proscar) 5 Mg Tab 5 MG PO DAILY for Manage Prostate Problems, #30 TAB 0 Refills Do not crush. Darrell Sarkar DO February 25, 2018 14:15
--- NOTE | 2018-02-26 19:11 | MP ---
cc: Godwin Ashley DPM DATE OF OPERATION: 02/24/2018 PREOPERATIVE DIAGNOSIS: Left intraarticular calcaneal fracture. POSTOPERATIVE DIAGNOSIS: Left intraarticular calcaneal fracture. PROCEDURE PERFORMED: Open reduction and internal fixation of the left calcaneus. ANESTHESIA: General, 20 mL of 0.25% Marcaine plain was infiltrated at the beginning and at the end of the procedure. MATERIALS USED: Synthes screws, stainless steel, wing plate, Synthes, x 4 4.0 screws and x 5 locking screws, 1 plate. ESTIMATED BLOOD LOSS: Less than 50 mL. TOURNIQUET TIME: 130 minutes. SLIP COVER ESTIMATOR: Dr. Robert Hendrickson PLAN OF ACTIVITY: Return to floor, monitor for pain management. Possible discharge home in 1-2 days. JUSTIFICATION FOR PROCEDURE: This is a pleasant 72-year-old male who fell from approximately 5 feet off a ladder at home. He presented to the [facility] ER. Intraarticular joint depression fracture was noted on the lateral view of an ankle. CT was ordered that confirmed severe comminution and depression of a posterior facet and tuber fragment of the calcaneus. The recommendation was transfer for open reduction and internal fixation. The patient was educated on the severity of the injury and the likelihood of developing posttraumatic arthritis and subtalar joint pain. Open reduction and internal fixation goals were to align the calcaneus, reduce the facet and make the foot more plantigrade to allow for walking and fitting in a shoe. No guarantees were given, or implied regarding the outcome. The patient understood that he may need more surgery at a later date including, but not limited to, removal of hardware, with possible subtalar joint fusion. Risks and benefits explained. PROCEDURE IN DETAIL: Under mild sedation, the patient was brought in the operating room, placed on the operating table in the supine position. Following the induction of general anesthesia, the patient's left lower extremity was scrubbed, prepped and draped in the usual aseptic fashion. The foot was elevated, exsanguinated and the previously placed mid-thigh tourniquet was inflated at 250 mmHg. First focus of the procedure was distraction of the fragments from the posterior calcaneus. A Steinmann pin was placed from lateral to medial, and then gentle traction was placed on the calcaneus while holding the proximal thigh. This allowed for loosening of the fracture fragments in preparation for joint manipulation. Next, an approximately 4 cm curvilinear incision was made at the level of the sinus tarsi, being careful not to violate the peroneal tendons or the sural nerve. Sharp and blunt dissection was carried down to the sinus tarsi. A joint depression fracture was then easily identified. Fracture hematoma was evacuated. Subperiosteal dissection then took place utilizing a [place] elevator, allowing for further visualization of the lateral wall fracture blowout and the depth of the fracture fragments. While holding traction on the calcaneus, a [place] elevator was utilized to elevate the facet that was depressed within the body of the calcaneus and then it was temporarily fixated utilizing a cannulated wire from a 4-0 screw, anchoring to the sustentacular fragment. This was visualized under fluoroscopy and there was noted to be elevation of the previously noted posterior facet. Next, 2 screws were then placed utilizing proper AO technique while visualizing under a calcaneal axial projection, being careful not to puncture the vital neurovascular structure on the medial aspect of the foot. Once the posterior facet was reduced, this was visualized clinically and there was minimal step-off noted upon flushing and evacuating the fracture hematoma. Next, focus of the procedure was aligning of the calcaneus from its previous varus position. Utilizing traction, the posterior tubercle was then anchored to the sustentaculum fracture fragment utilizing 3 percutaneous wires from the posterior aspect of the heel. Two of these wires were then utilized for placement of a 4.0 screw x 2, one stabilizing the posterior tuber fragment and the other stabilizing the body centrally underneath the sustentacular fragment. The next focus of the procedure was further fixating the medial wall of the calcaneus to the lateral wall of the calcaneus. The Synthes large left wing plate was then deployed beneath the peroneal tendons after careful dissection, and then utilizing 5 screws placed from lateral to medial, the calcaneus was further stabilized. There was noted to be still step-off plantarly, however, the stability of the fracture fragments was adequate. Bone graft was packed from the lateral wall blowout to further aid in consolidation of the fracture fragments. The wounds were flushed with copious amounts of normal saline. Next, a subperiosteal closure took place utilizing Vicryl. Skin was closed utilizing nylon. Multiple projections were taken in the operative suite, verifying correction of the majority of the fracture fragments. However, of note, this was a severely comminuted fracture, but the goals of posterior facet elevation, reducing lateral wall blowout, as well as aligning the calcaneus in a rectus position were all achieved. A well-padded Paula compressive dressing and a posterior splint was applied. Upon releasing the tourniquet, there was a prompt hyperemic response to all digits, without any delayed capillary fill time. Due to the nature of the surgery, it was vital and important that a doctor assistant maintenance manager was present. Dr. Hendrickson was vital in improving the outcome of this case with her skill and knowledge of the procedure and allowing for traction in the adequate manner. The patient recovered nicely in PACU, after uneventful extubation. The patient will be monitored for 1-2 days for postoperative pain. SHAHBAZ Jeff , 05:37 PM , 07:10 PM
== END 2018-02-25 17:50 | disposition home or self-care (01) | DRG 505 ==
LOC: NEDDLT 20:25 → N06A 20:35
PROVIDERS: ADMIT Hospitalist; ATTEND Hospitalist
PROC: 0QSM04Z Reposition Left Tarsal with Internal Fixation Device, Open Approach (ICD-10-PCS; principal; 2018-02-24 15:42)
DX: S92.062A Displaced intraarticular fracture of left calcaneus, initial encounter for closed fracture (principal); E78.5 Hyperlipidemia, unspecified; I45.9 Conduction disorder, unspecified; W11.XXXA Fall on and from ladder, initial encounter; N40.0 Benign prostatic hyperplasia without lower urinary tract symptoms; Y92.009 Unspecified place in unspecified non-institutional (private) residence as the place of occurrence of the external cause; Z79.82 Long term (current) use of aspirin; Z87.891 Personal history of nicotine dependence
CPT/HCPCS: 73650; 76000; 80048; 85025; 93005; 94150; C1713; J0690; J1100; J1580; J1650; J2270; J2370; J2405; J3010; J7120